=== PATIENT | female | born 1985 | race Caucasian/White ===

== ENCOUNTER 2019-07-09 08:16 | Emergency (ER) | payer MEDICAID ==
[~2019-07-09] VITALS: Ht 167.6 cm; Wt 110.0 kg
[~2019-07-09 08:16] MED LIST: AZIT-63 PO; CYCL-1 PO; NO HOME MEDS
[2019-07-09 08:20] VITALS: BP 169/101
[2019-07-09] MEDS ORDERED: ibuprofen 200mg tablet PO ONE (09:00)
[2019-07-09] MEDS ORDERED: ACET-2006 PO (09:03)
[2019-07-09] MEDS ORDERED: IBUP-1985 PO (09:03)
[2019-07-09] MEDS ORDERED: AMOX500C2 PO (09:03)
== END 2019-07-09 09:11 | disposition home or self-care (01) ==
LOC: ER 08:16
DX: H66.92 Otitis media, unspecified, left ear (principal); F17.200 Nicotine dependence, unspecified, uncomplicated; Z88.0 Allergy status to penicillin; Z88.6 Allergy status to analgesic agent; Z88.5 Allergy status to narcotic agent
CPT/HCPCS: 99283